=== PATIENT | female | born 1960 | race Caucasian/White ===

== ENCOUNTER 2017-05-09 09:52 | Day surgery (SDC) | payer BC ==
[2017-05-09] MEDS: Lactated Ringers 1,000 ML IV SCH ×2 (10:20→12:53)
[2017-05-09] MEDS ORDERED: fentaNYL 100 MCG/2 ML SDV ONE (11:41)
[2017-05-09] MEDS ORDERED: Propofol 200 MG/20 ML SDV ONE (11:41)
[2017-05-09] MEDS ORDERED: Lactated Ringers 1,000 ML ONE (12:44)
[2017-05-09 14:07] VITALS: BP 127/72
--- NOTE | 2017-05-10 01:56 | OR ---
PREOPERATIVE DIAGNOSIS: Positive FIT test. POSTOPERATIVE DIAGNOSIS: Colonic polyps x5. PROCEDURE PROPOSED: Total flexible colonoscopy. PROCEDURE DONE: Total flexible colonoscopy with polypectomy x5. INDICATION: This is a 56-year-old female referred for colonoscopic exam due to a positive FIT test. This will be her first colonoscopic exam. She denies any family history of colon cancer or symptomatology. TECHNIQUE: The patient is brought to the endoscopy suite, placed in left lateral decubitus position. She was sedated per CABLE TESTER with propofol. The flexible video colonoscope was then passed transanally and under visualization, advanced to the cecum. In the hepatic flexure area, couple of polyps were found, removed by cold biopsy forceps. Another polyp was found in the transverse colon, removed by cold snare technique, and 2 other polyps were found in the sigmoid and descending colon region, both removed by cold biopsy forceps. All 5 polyps were submitted for pathologic examination. There is otherwise no other abnormalities such as diverticulosis or colitis and the scope was then withdrawn. She tolerated the procedure well. IMPRESSION: Colonic polyps x5. PLAN: She will be sent a letter with the Pathology report, and I will be making a recommendation of possibly doing a recommended followup exam in 3 to 5 years due to the multitude of polyps. Once we have cleared her colon, she could go on an every 5 year schedule thereafter. SCM: 05/09/2017 12:55:15 MODL: 05/10/2017 01:43:32 /[id number]
--- NOTE | 2017-05-28 11:46 | LETTER ---
05/18/2017 RE: SHANNAN ALEX : 1960 Dear Shannan, The polyps removed from your colon were all benign but they were all considered precancerous type polyps. Because of the multitude of polyps that were found, I do feel you should have a 3-year followup exam of your colon to make sure you have not formed any new polyps and that no small polyps were missed. If on your next exam you only have 0-2 polyps, she can go on an every 5 year schedule thereafter. If have any further question regarding this, feel free to call. Respectfully,
== END 2017-05-09 13:40 | disposition home or self-care (01) ==
LOC: VM.SDS 09:52
PROVIDERS: ATTEND Surgery
DX: D12.6 Benign neoplasm of colon, unspecified (principal); E78.5 Hyperlipidemia, unspecified; E16.2 Hypoglycemia, unspecified; Z88.2 Allergy status to sulfonamides; Z91.040 Latex allergy status; Z98.890 Other specified postprocedural states; Z79.899 Other long term (current) drug therapy
CPT/HCPCS: 45380; J2704; J3010; J7120

== ENCOUNTER 2020-09-15 21:38 | Emergency (ER) | payer BC ==
--- NOTE | 2020-09-15 22:10 | EDM.PDOC ---
ED HPI GENERAL MEDICAL PROBLEM - General Stated Complaint: dizziness Time Seen by Provider: 09/15/20 22:05 Source of Information: Reports: Patient History Limitations: Reports: No Limitations - History of Present Illness INITIAL COMMENTS - FREE TEXT/NARRATIVE: Patient comes emergency department today with her from home with complaints of dizziness. Patient does have a history of dizziness that she takes meclizine on a very infrequent basis. About 2 hours ago prior to arrival the patient had what she relates as a "whooshing" sensation on the very top of her head. It feels like the internal aspect of her brain inside her head is "whooshing". She denies any recent falls head trauma or injury. He does not have a headache. No visual acuity changes. He denies any paresthesias of her upper or lower extremities. No change in functionality of her upper or lower extremities. She denies any vertigo or inability with ambulation. She denies any change in the functionality of her extremities. Denies any visual acuity changes. No headache. No syncope. No chest pain shortness of breath or difficulty breathing. No palpitations. No syncope. No fever no chills. No nausea no vomiting. No weakness dizziness light headedness but just this "whooshing" sensation in the very top of her head. - Related Data Allergies Allergy/AdvReac Type Severity Reaction Status Date / Time Latex, Natural Rubber Allergy Rash Verified 09/16/20 02:31 Sulfa (Sulfonamide Allergy Bronchospas Verified 09/16/20 02:31 Antibiotics) ms Home Meds: Home Meds ALPRAZolam [Alprazolam] 0.25 mg PO BID PRN 05/04/17 [History] Dextrose [Glucose] 2 gm PO ASDIRECTED PRN 05/04/17 [History] Fluticasone Propionate [Flonase] 2 spray NASBOTH BID 05/04/17 [History] Meclizine [Antivert] 12.5 - 25 mg PO TID PRN 05/04/17 [History] Ubidecarenone [Co Q-10] 100 mg PO DAILY 05/04/17 [History] Multivitamin [Multivitamins] 1 tab PO DAILY 05/09/17 [History] Past Medical History HEENT History: Reports: Allergic Rhinitis Cardiovascular History: Reports: High Cholesterol Respiratory History: Reports: None Other Gastrointestinal History: HEME POS STOOL Genitourinary History: Reports: None Other Musculoskeletal History: OSTEOPENIA. ARTHRALGIA OF BOTH KNEES Neurological History: Reports: Vertigo Psychiatric History: Reports: Anxiety Other Endocrine/Metabolic History: POST MENOPAUSAL. HYPOGLYCEMIA Hematologic History: Reports: None Immunologic History: Reports: None Oncologic (Cancer) History: Reports: None - Past Surgical History Head Surgeries/Procedures: Reports: None HEENT Surgical History: Reports: Tonsillectomy Cardiovascular Surgical History: Reports: None GI Surgical History: Reports: None Female Surgical History: Reports: Section Musculoskeletal Surgical History: Reports: Arthroscopic Knee Oncologic Surgical History: Reports: None Dermatological Surgical History: Reports: Other (See Below) ED ROS GENERAL - Review of Systems Review Of Systems: Comprehensive ROS is negative, except as noted in HPI. ED EXAM, DIZZINESS - Physical Exam Exam: See Below Exam Limited By: No Limitations General Appearance: Alert, WD/WN, No Apparent Distress Eye Exam: Bilateral Eye: EOMI, PERRL Ears: Normal External Exam, Normal Canal, Hearing Grossly Normal, Normal TMs Nose: Normal Inspection, Normal Mucosa, No Blood Throat/Mouth: Normal Inspection, Normal Lips, Normal Voice Head Exam: Atraumatic, Normocephalic Neck: Normal Inspection, Supple, Non-Tender, Full Range of Motion Respiratory/Chest: No Respiratory Distress, Lungs Clear, Normal Breath Sounds, No Accessory Muscle Use, Chest Non-Tender Cardiovascular: Normal Peripheral Pulses, Regular Rate, Rhythm GI/Abdominal: Normal Bowel Sounds, Soft Neurological: Alert, Normal Mood/Affect, Normal Dorsiflexion, CN II-XII Intact, Normal Plantar Flexion, Normal Gait, Normal Reflexes, No Motor/Sensory Deficits, Oriented x 3. No: Ataxia, Abnormal Sensation, Abnormal Motor, Difficulty Walking DTR: 2+: Bicep (R), Bicep (L), Patella (R), Patella (L), Achilles (R), Achilles (L) Back Exam: Normal Inspection, Full Range of Motion Extremities: Normal Inspection, Normal Range of Motion, Non-Tender, No Pedal Edema, Normal Capillary Refill Psychiatric: Normal Affect, Normal Mood Skin Exam: Warm, Dry, Intact, Normal Color, No Rash Course - Vital Signs Last Recorded V/S: Last Vital Signs Temp 97.9 F 09/15/20 21:50 Pulse 64 09/15/20 21:50 Resp 17 11/04/20 21:50 BP 141/66 H 09/15/20 21:50 Pulse Ox 97 09/15/20 21:50 - Orders/Labs/Meds Labs: Laboratory Tests 09/15/20 09/16/20 09/16/20 Range/Units 21:58 00:24 00:24 WBC 5.7 (4.0-10.0) x10^3/uL RBC 4.69 (4.00-5.50) x10^6/uL Hgb 12.5 (12.0-16.0) g/dL Hct 39.2 (33.0-47.0) % MCV 83.6 (78.0-93.0) fL MCH 26.7 (26.0-32.0) pg MCHC 31.9 L (32.0-36.0) g/dL RDW Coeff of Steve 14.9 (10.0-15.0) % Plt Count 195 (130-400) x10^3/uL Neut % (Auto) 73.5 (50.0-80.0) % Lymph % (Auto) 15.9 L (25.0-50.0) % [place] % (Auto) 9.1 (2.0-11.0) % Eos % (Auto) 1.0 (0.0-4.0) % Baso % (Auto) 0.5 (0.2-1.2) % Sodium 145 (136-145) mmol/L Potassium 3.7 (3.5-5.1) mmol/L Chloride 109 H (98-107) mmol/L Carbon Dioxide 25 (21-32) mmol/L Anion Gap 14.7 (10-20) mmol/L BUN 18 (7-18) mg/dL Creatinine 0.8 (0.55-1.02) mg/dL Est Cr Clr Drug Dosing TNP Estimated GFR (MDRD) > 60 Glucose 108 H (74-106) mg/dL POC Glucose 100 (74-106) mg/dL Calcium 8.7 (8.5-10.1) mg/dL Corrected Calcium 9.02 (8.5-10.1) mg/dL Total Bilirubin 0.5 (0.2-1.0) mg/dL AST 20 (15-37) U/L ALT 28 (14-59) U/L Alkaline Phosphatase 94 (46-116) U/L Total Protein 7.0 (6.4-8.2) g/dL Albumin 3.6 (3.4-5.0) g/dL Globulin 3.4 Albumin/Globulin Ratio 1.06 Meds: Medications Discontinued Medications Generic Name Dose Route Start Last Admin Trade Name Cornell PRN Reason Stop Dose Admin Diazepam 5 mg 09/15/20 22:41 09/15/20 23:02 Valium IM 09/15/20 22:42 5 mg ONETIME ONE Administration - Re-Assessments/Exams Free Text/Narrative Re-Assessment/Exam: Patient was given 5 mg of Valium IM. About 20 to 25 minutes later following the above medication the patient has almost complete resolution of her symptoms of brought her into the emergency department. Repeat neurological evaluation is unchanged and her initial. She really has a interesting and odd presentation for vertigo dizziness or any other symptomology. Her mom is wondering if she does not have somewhat of a complex type migraine. She is much improved after the Valium. I do not feel any CT scans are going through or change our management strategies at this time as she has no recent falls trauma this is an acute complaint. We will discharge her home with close follow-up with her primary care if she has recurrences. Discharge directions as below are explained to the patient she was comfortable this plan her questions are answered. Departure - Departure Time of Disposition: 00:26 Disposition: Home, Self-Care 01 Clinical Impression: Dizziness - Discharge Information Referrals: Maria Eugenia Miller MD [Primary Care Provider] - Forms: ED Department Discharge Additional Instructions: Rest the next few days. Make sure and eat regular meals and drink lots of fluids. Try Benadryl OTC if reoccurrence of symptoms. Follow up with PCP in the next few days if symptoms persist or worsen. Return to the ED if new or worsening symptoms.
[2020-09-16 00:50] LABS: CHLORIDE,CL 109 mmol/L (98-107); SODIUM,NA 145 mmol/L (136-145)
[2020-09-16 00:56] LABS: ANION GAP 14.7 mmol/L (10-20)
[2020-09-16 03:10] VITALS: BP 141/66; PULSE 64
== END 2020-09-16 00:38 | disposition home or self-care (01) ==
LOC: VM.ED 21:38
DX: R42 Dizziness and giddiness (principal); F41.9 Anxiety disorder, unspecified; Z91.040 Latex allergy status; Z88.2 Allergy status to sulfonamides; Z90.49 Acquired absence of other specified parts of digestive tract
CPT/HCPCS: 36415; 80053; 82962; 85025; 93005; 96372; 99284; 99284-25; J3360

== ENCOUNTER 2021-05-19 07:20 | Day surgery (SDC) | payer BC ==
[~2021-05-19 07:20] MED LIST: Lactated Ringers 1,000 ML IV SCH
[2021-05-19] MEDS ORDERED: Propofol 200 MG/20 ML SDV ONE ×3 (08:53→09:44)
[2021-05-19] MEDS ORDERED: Midazolam 1 MG/ML 2 ML SDV ONE (08:53)
[2021-05-19] MEDS ORDERED: fentaNYL 100 MCG/2 ML SDV ONE (08:53)
[2021-05-19 10:42] VITALS: BP 111/63; PULSE 57
--- NOTE | 2021-05-19 14:49 | OR ---
DATE OF SURGERY: 05/19/2021. REFERRING PROVIDER: Maria Eugenia Miller MD. PRE-OPERATIVE DIAGNOSES: History of colon polyps. Last colonoscopy in 04/2017 revealed 3 adenomas. POST-OPERATIVE DIAGNOSES: 1. Larger sessile polyp at the hepatic flexure around 70 cm from anal verge during removal. The patient did have a tortuous redundant stretch of the colon at this spot, which made even visualization difficult. I was not able to remove this, but did get a couple cold biopsies taken. I did also tattoo the area both proximally and distally. The sessile polyp followed a haustral fold and covered about 1/3 of the wall circumference. 2. Total of 3 small polyps removed using cold forceps. a. 3 mm at 75 cm. b. 2 mm at 65 cm. c. 3 mm at 65 cm. PROCEDURE: Colonoscopy with polypectomy x3 using cold forceps and cold biopsy x1 site using cold forceps (see #1 above). SURGEON: Anjel Solomon M.D. ANESTHESIA: Monitored anesthesia care. BOWEL PREP: Good. Rocio is a 60-year-old female who was brought to the endoscopy suite after discussing risks and benefits of the procedure. Informed consent was obtained for conscious sedation and colonoscopy with or without biopsy and/or polypectomy. We also discussed possibility of missed lesions. Pre-procedure exam was unremarkable. IV, oxygen, and monitors were placed. The patient was placed in the left lateral decubitus position. Sedation was administered and a digital rectal exam was performed which was unremarkable. Colonoscope was passed into the rectum and slowly advanced all the way to the cecum. Cecum was viewed and photographed. The colonoscope was slowly withdrawn and the mucosa was closed observed in a direct circumferential manner. Ascending colon was remarkable for 3 mm polyp at 75 cm, removed using cold forceps. At the hepatic flexure, the patient had a stretch of colon where it was difficult to visualize due to it being fixed and somewhat C. This made the scope move to the area rather quickly. I did have a difficult time visualizing the larger sessile polyp at the hepatic flexure at 70 cm from the anal verge. This distance although was inconsistent given the redundant colon in the area. We did move the patient onto her back and I was able to get a couple of bites using cold forceps. We did tattoo the area both proximally and distally. The sessile polyp looked more like adenomatous and/or sessile serrated appearance rather than cancerous. It did cover about a third of the wall circumference following a haustral fold. The transverse colon revealed 2 mm and 3 mm polyp at 65 cm, both removed using cold forceps. The sigmoid colon unremarkable. Retroflexion was performed, rectal mucosa unremarkable. Scope was removed. The patient tolerated the procedure well. The patient was monitored until that baseline status. Discharge instructions were reviewed and the patient was discharged in good condition. COMPLICATIONS: None. TOTAL TIME: 51 minutes. ESTIMATED BLOOD LOSS: About 2 mL. RECOMMENDATIONS/FOLLOW-UP: We will await results of path report to determine ideal followup interval. Given the difficult access to the polyp at the hepatic flexure, I am expecting to do referral for removal of this sessile polyp at the hepatic flexure. I would like to kindly thank Dr. Miller for this referral. DMB: 05/19/2021 11:47:14 MODL: 05/19/2021 14:02:51 /[id number]
== END 2021-05-19 11:10 | disposition home or self-care (01) ==
LOC: VM.SDS 07:20
PROVIDERS: ATTEND Family Medicine
DX: D12.3 Benign neoplasm of transverse colon (principal); D12.6 Benign neoplasm of colon, unspecified; K63.89 Other specified diseases of intestine; Z88.2 Allergy status to sulfonamides; Z91.040 Latex allergy status; Z88.8 Allergy status to other drugs, medicaments and biological substances; Z86.010 Personal history of colon polyps
CPT/HCPCS: 00811; 45380; J2250; J2704; J3010; J7120